=== PATIENT | female | born 1945 | race Caucasian/White ===

== ENCOUNTER 2018-12-31 07:01 | Inpatient (IN) | payer MEDICARE, BC ==
[2018-12-31] VITALS (31 sets, daily range): BP systolic 107–146; BP diastolic 55–83; PULSE 74–106; RESP 6–24; Ht 172.7 cm; Wt 95.6 kg
[~2018-12-31] VITALS: Ht 172.7 cm; Wt 95.6 kg
[~2018-12-31 07:01] MED LIST: ACETAMINOPHEN 500 MG TAB PO ONE; BACITRACIN 50000 UNITS INJ ONE; CEFAZOLIN 2 GM/50 ML (PMX) 50 ML IVPB ONE; DEXAMETHASONE 4 MG/ML 1 ML INJ IV ONE; LACTATED RINGER'S 1,000 ML IV* SCH; TRANEXAMIC ACID 1GM/100ML(PMX) 100 ML INTRA-OP X1 IVPB ONE; TRANEXAMIC ACID 1GM/100ML(PMX) 100 ML PRE-OP X1 IVPB ONE
[2018-12-31] MEDS ORDERED: POLYMYXIN B 500000 UNIT INJ ONE (07:12)
--- NOTE | 2018-12-31 07:29 | HPN ---
Date/Time of Note Date/Time of Note DATE: 12/31/18 TIME: 07:29 Interval H&P Admission Note Pt. seen H&P reviewed: No system changes ANNETTE PARSONS Dec 31, 2018 07:29
[2018-12-31] MEDS ORDERED: VENL-42 PO (08:02)
[2018-12-31] MEDS ORDERED: LEVO50TA71 PO (08:02)
[2018-12-31] MEDS ORDERED: LANS30CA PO (08:02)
[2018-12-31] MEDS ORDERED: GABA100C14 PO (08:03)
[2018-12-31] MEDS ORDERED: TURM500C9 PO (08:03)
[2018-12-31] MEDS ORDERED: CYCL1DRO BOTH EYES (08:05)
[2018-12-31] MEDS ORDERED: MELO15TA30 PO (08:06)
[2018-12-31] MEDS ORDERED: PRED5DRO20 LEFT EYE (08:06)
--- NOTE | 2018-12-31 08:36 | PREAC ---
Date/Time of Note Date/Time of Note DATE: 12/31/18 TIME: 08:35 Anesthesia Eval and Record Evaluation Time Pre-Procedure Interview DATE: 12/31/18 TIME: 08:35 Age 73 Sex female NPO: 8 hrs Preoperative diagnosis L knee OA Planned procedure L knee TKR Past Medical History Past Medical History: Includes Cardio: HTN, Dyslipidemia Endo: Hypothyroid GI: GERD, Obesity Surgery & Anesthesia Issues No known issue Meds Anticoagulation: No Beta Sarahi within 24 hr: No Reason Beta Sarahi not given: Pt. not on B-Sarahi Reported Medications Meloxicam* (Mobic*) 15 Mg Tablet, 15 MG PO DAILY, #30 TAB 12/31/18 Prednisolone Acetate* (Pred Forte*) 5 Ml Susp, 1 DROP LEFT EYE QHS, EA 12/31/18 Cyclosporine (RESTASIS) 1 Each Droperette, 1 DROP BOTH EYES Q12, #1 BOX 12/31/18 Gabapentin* (Gabapentin*) 100 Mg Capsule, 200 MG PO QHS, #180 CAP 12/31/18 Lansoprazole* (Lansoprazole*) 30 Mg Capsule.dr, 30 MG PO DAILY, CAP 12/31/18 Levothyroxine Sodium* (Levoxyl*) 50 Mcg Tablet, 50 MCG PO BEFORE BREAKFAST, #30 TAB 12/31/18 Venlafaxine Hcl* (Venlafaxine Hcl ER*) 37.5 Mg Cap.er.24h, 37.5 MG PO DAILY, CAP 12/31/18 Discontinued Reported Medications Turmeric Root Extract (Turmeric) 500 Mg Capsule, 1000 MG PO DAILY, CAP 12/31/18 Current Medications Lactated Ringer's 1,000 ml @ 125 mls/hr Q8H IV* ; Start 12/31/18 at 07:00; Stop 12/31/18 at 14:59 Meds reviewed: Yes Allergies Coded Allergies: No Known Allergy (Unverified , 12/31/18) Allergies Reviewed: Yes Labs/Studies Labs Reviewed: Reviewed by anesthesiologist test: Negative Studies: ECG Pre-procedure Exam Last vitals Vital Signs Date Temp Pulse Resp B/P (MAP) Pulse Ox O2 O2 Flow FiO2 Time Delivery Rate 12/31/18 98.1 106 16 146/71 95 07:15 (96) Airway: Adequate mouth opening, Adequate thyromental dist Mallampati: Mallampati II Teeth: Normal Lung: Normal Heart: Normal ASA Physical Status ASA physical status: 3 Emergency: None Planned Anesthetic General/MAC: ETT Neuraxial: Spinal Nerve block: Femoral (left) Planned Pain Management Sub-arachniod narcotics Pre-operative Attestations Prior to commencing anesthesia and surgery, the patient was re-evaluated, there was verification of: *The patient's identity *The results of appropriate recent lab work and preoperative vital signs *The above evaluation not changing prior to induction *Anesthetic plan, risk benefits, alternative and complications discussed with patient/family; questions answered; patient/family understands, accepts and wishes to proceed. RITA JOSEPH Dec 31, 2018 08:36
[2018-12-31] MEDS ORDERED: morphine SULFATE/PF (10 MG/10 ML) INJ ONE (08:52)
[2018-12-31] MEDS ORDERED: MIDAZOLAM 1 MG/ML 2 ML INJ ONE (08:53)
[2018-12-31] MEDS ORDERED: HYDROmorphONE 1 MG/5 ML IV SYRINGE IV PRN ×2 (09:00)
[2018-12-31] MEDS ORDERED: ALBUTEROL 0.083% (NEB) 2.5 MG/3 ML AMP HHN PRN (09:00)
[2018-12-31] MEDS ORDERED: METOCLOPRAMIDE 10 MG INJ IV PRN (09:00)
[2018-12-31] MEDS ORDERED: MEPERIDINE 25 MG INJ IV PRN (09:00)
[2018-12-31] MEDS ORDERED: DIPHENHYDRAMINE 50 MG INJ IV PRN (09:00)
[2018-12-31] MEDS ORDERED: ONDANSETRON 4 MG INJ IV PRN (09:00)
[2018-12-31] MEDS ORDERED: FENTAnyl 50 MCG/ML VIAL IV PRN ×2 (09:00)
[2018-12-31] MEDS ORDERED: FENTAnyl 50 MCG/ML VIAL ONE (09:10)
[2018-12-31] MEDS ORDERED: SUGAMMADEX SODIUM 200 MG/2 ML VIAL IV ONE (10:06)
[2018-12-31] MEDS ORDERED: ROCURONIUM 50 MG INJ ONE (10:06)
[2018-12-31] MEDS ORDERED: LIDOCAINE 100 MG SYRINGE ONE (10:06)
[2018-12-31] MEDS ORDERED: CEFAZOLIN 1 GM INJ ONE (10:06)
[2018-12-31] MEDS ORDERED: SUCCINYLCHOLINE CHLORIDE 100 MG/5 ML SYG IV ONE (10:06)
[2018-12-31] MEDS ORDERED: PROPOFOL 20 ML ONE (10:06)
[2018-12-31] MEDS ORDERED: ROPIVACAINE 0.5 % 30 ML VIAL ONE (10:06)
--- NOTE | 2018-12-31 10:36 | SIPON ---
Date/Time of Note Date/Time of Note DATE: 12/31/18 TIME: 10:35 Operative Report Preoperative Diagnosis Left knee osteoarthritis Postoperative Diagnosis Same Operation/Procedure Performed Left total knee replacement Surgeon see signature line speech pathology assistant GILMAR Catalan Anesthesia: spinal Estimated blood loss: 150 - 200 ml's Transfusion Required none Specimen Bone Grafts/Implants Attune knee, size 6 femur, size 5 tibia 6 mm polyethylene and 35 patella Complications none ANNETTE PARSONS Dec 31, 2018 10:36
--- NOTE | 2018-12-31 10:39 | OPR ---
Date/Time of Note Date/Time of Note DATE: 12/31/18 TIME: 10:36 Operative Report Procedure Date: Dec 31, 2018 Preoperative Diagnosis Left knee osteoarthritis Postoperative Diagnosis Same Operation/Procedure Performed Left total knee replacement Surgeon see signature line Irrigation Worker GILMAR Catalan Anesthesia Type: spinal Estimated Blood Loss: 150 - 200 ml's Transfusion none Specimen Bone Grafts/Implants Angus attune knee, 6 narrow femur, 5 tibia, 6 mL polyethylene and 35 patella Tubes/Drains None Complications none Pt Condition Post Procedure: stable Disposition: PACU Indications Patient is a 73-year-old female with advanced osteoarthritis of her left knee Procedure Description Patient was placed supine on the operating table. The left knee was prepped and draped in the usual manner. Preoperative antibiotics were administered. An anterior incision was made. A mid vastus approach was made on the patella displaced laterally without everting it. Hemostasis was achieved with electrocautery and aqua mantis. Using intramedullary alignment, the distal femoral cut was made in 5 degrees of valgus. The femur was measured to be a size 6 from the [employer] knee system. The 6 cutting block was placed. Anterior posterior chamfer cuts were made. A notch was cut in the distal femur to accommodate the posterior stabilized femoral component. The PCL was sacrificed, remnants of the menisci were removed. Hemostasis was confirmed. The tibia was cut using external alignment of the patella cut using a freehand technique. Trials were inserted including a 6 femur, 5 tibia, 35 patella and 6 mm of polyethylene. This resulted in a stable knee from 0 to 120 degrees with good balance and tracking. X-rays confirm proper alignment of the implants. Once satisfactory alignment was confirmed, final components were cemented in place including a 6 narrow femur, 5 tibia, 35 patella. Excess cement was removed. 6 mm of polyethylene were placed and the knee injected with pain cocktail. The kn ee was closed in layers using #1 strata fix for deep fascia, 2-0 Vicryl for subcutaneous tissue and 3-0 Monocryl for the skin. Patient was transferred to the recovery room in stable condition ANNETTE PARSONS Dec 31, 2018 10:39
[2018-12-31] MEDS ORDERED: KETOROLAC 15 MG INJ IV PRN (11:00)
[2018-12-31] MEDS ORDERED: NALOXONE (0.4 MG/ML) INJ IV PRN (11:00)
[2018-12-31] MEDS ORDERED: oxyCODONE 5 MG TAB PO PRN (11:00)
[2018-12-31] MEDS ORDERED: NACL 0.9% 3 ML SYG IV SCH (11:00)
[2018-12-31] MEDS ORDERED: MAGNESIUM HYDROXIDE 30ML CUP PO PRN (11:00)
[2018-12-31] MEDS: LACTATED RINGER'S 1,000 ML IV SCH ×2 (11:57→17:14)
--- NOTE | 2018-12-31 12:14 | PAC ---
Date/Time of Note Date/Time of Note DATE: 12/31/18 TIME: 12:14 Post-Anesthesia Notes Post-Anesthesia Note Last documented vital signs Vital Signs Date Temp Pulse Resp B/P (MAP) Pulse Ox O2 O2 Flow FiO2 Time Delivery Rate 12/31/18 98.1 106 16 146/71 95 07:15 (96) Activity: WNL Respiratory function: WNL Cardiovascular function: WNL Mental status: Baseline Pain reasonably controlled: Yes Hydration appropriate: Yes Nausea/Vomiting absent: Yes RITA JOSEPH Dec 31, 2018 12:14
[2018-12-31] MEDS ORDERED: GABAPENTIN 100 MG CAP PO SCH (13:00)
[2018-12-31] MEDS: CEFAZOLIN 2 GM/50 ML (PMX) 50 ML IVPB SCH (18:26)
[2018-12-31] MEDS: DIPHENHYDRAMINE 25 MG CAP PO PRN (19:47)
--- NOTE | 2018-12-31 19:54 | HP ---
DATE OF ADMISSION: 12/31/2018 CHIEF COMPLAINT: Left knee pain. HISTORY OF PRESENT ILLNESS: The patient is a 73-year-old female with history of severe degenerative arthritis of the left knee which was confirmed by MRI back in 11/2018. The patient also had medial m eniscal failure. The patient was referred to Dr. Annette Parsons and was brought into hospital today. The patient underwent left total knee replacement. The patient postoperatively denies any chest pain or short of breath. No history of headache, dizziness, syncope. 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 The patient did not have any abd ominal pain. No reported nausea or vomiting, any previous focal weakness. No reported hypertension, diabetes or congestive heart failure. The patient does have history of hypothyroidism and depressio n. REVIEW OF SYSTEMS: A total of 12 systems were reviewed and other than poor vision in the right eye a nd postoperative left knee pain, rest of review of systems was unremarkable. The patient's depressio n is well under control. The patient denies any suicidal ideation. No history of any acute skin alexa h or acute joint swelling recently. PAST MEDICAL HISTORY: As stated above. In addition, the patient also has history of acid reflux dis ease, migraine headache, history of mixed dyslipidemia and prediabetes. PAST SURGICAL HISTORY: Status post hemorrhoidectomy, partial thyroidectomy and hysterectomy and also right eye surgery by Dr. Vargas, retinal specialist. SOCIAL HISTORY: No smoking. Occasionally drinks alcohol. FAMILY HISTORY: Father at age 91. Mother at 89 from natural causes. MEDICATIONS PRIOR TO ADMISSION: 1. Venlafaxine. 2. Levothyroxine. 3. Prevacid. 4. Prednisone ophthalmic solution. 5. Restasis. 6. Mobic. 7. Topamax. 8. Gabapentin. 9. . ALLERGIES: NO KNOWN DRUG ALLERGIES. PHYSICAL EXAMINATION: GENERAL: Revealed the patient to be awake, alert, fairly oriented. VITAL SIGNS: Temperature 98.2, pulse 80, respirations 24, blood pressure 120/62, O2 sat is 99% on 2 liters' nasal cannula. HEENT: No eye discharge or redness. Conjunctivae and lids are normal. Nose and ears are normal. O ropharynx is grossly negative. NECK: Supple. No mass, no thyromegaly, no carotid bruit. CHEST: Fairly clear. No use of accessory muscles. CARDIOVASCULAR: S1, S2 normal. No murmur. ABDOMEN: Soft, nondistended, nontender. Bowel sounds are present. EXTREMITIES: No ankle edema. Pedal pulses are palpable. NEUROLOGIC: The patient is awake, alert, fairly oriented with no gross focal deficit, although exam was limited due to recent left knee replacement. LABORATORY DATA: Sodium 140, potassium 4.4, BUN 16, creatinine 0.9, glucose 95. Albumin 4.6. Coagu lation profile revealed INR of 1, PT 10.4, PTT 29. WBC 9.4, hemoglobin 14.6, platelets 315. DIAGNOSTIC DATA: EKG revealed normal sinus rhythm with no acute ST changes. Chest x-ray revealed no acute cardiopulmonary disease. IMPRESSION: 1. Left knee osteoarthritis status post left total knee replacement. Continue IV fluid and we will give aspirin for deep venous thrombosis prophylaxis. Continue with Celebrex, gabapentin and oxycodon e for pain control. 2. Hypothyroidism. Continue Synthroid. 3. Gastroesophageal reflux disease. Continue proton pump inhibitor. 4. Depression, stable with current dose of Effexor XR. We will continue that. We will do followup CBC and BMP tomorrow. Physical therapy has been ordered. We will continue to fo llow her from a medical standpoint. Dictated By: CARLOS JAY MD AB/NTS Conf#: [id number] DID#: [id number] CC: ANNETTE PARSONS MD;*End*
[2018-12-31] MEDS: GABAPENTIN 100 MG CAP PO SCH (21:22)
[2018-12-31] MEDS: oxyCODONE 5 MG TAB PO PRN (21:22)
[2018-12-31] MEDS: CYCLOSPORINE 0.05% OPH DROPERETTE BOTH EYES SCH (21:23)
[2018-12-31] MEDS: PREDNISOLONE ACET 1% 5 ML OPH LEFT EYE SCH (22:06)
[2019-01-01 00:30] VITALS: BP 118/55; PULSE 87; RESP 18
[2019-01-01] MEDS: oxyCODONE 5 MG TAB PO PRN ×5 (01:48→22:09)
[2019-01-01] MEDS: DIPHENHYDRAMINE 25 MG CAP PO PRN ×2 (01:52→08:53)
[2019-01-01] MEDS: CEFAZOLIN 2 GM/50 ML (PMX) 50 ML IVPB SCH ×2 (01:53→08:19)
[2019-01-01] MEDS: LEVOTHYROXINE 50 MCG TAB PO SCH (06:25)
[2019-01-01 08:05] VITALS: BP 122/69; PULSE 98; RESP 18
[2019-01-01] MEDS: LANSOPRAZOLE 30 MG CAP PO SCH (08:18)
[2019-01-01] MEDS: CELECOXIB 100 MG CAP PO SCH ×2 (08:18→21:18)
[2019-01-01] MEDS: ASPIRIN (EC) 81 MG TAB PO SCH ×2 (08:18→21:18)
[2019-01-01] MEDS: DOCUSATE SODIUM 100 MG CAP PO SCH ×2 (08:18→21:18)
[2019-01-01] MEDS: VENLAFAXINE (XR) 37.5 MG CAP PO SCH (08:18)
[2019-01-01] MEDS: CYCLOSPORINE 0.05% OPH DROPERETTE BOTH EYES SCH ×2 (08:19→21:18)
--- NOTE | 2019-01-01 09:59 | PN ---
Date/Time of Note Date/Time of Note DATE: 01/01/19 TIME: 09:57 Assessment/Plan Lines/Catheters IV Catheter Type (from Nrsg): Peripheral IV Patrick in Place (from Nrsg): No Assessment/Plan Assessment/Plan Patient is progressing well after left knee replacement. She does have increased pain today and would like to stay 1 more day in the hospital doing physical therapy and achieving better pain control. This is reasonable since her potassium is also high and will need observing. She will be discharged tomorrow with instructions to follow-up in 2 weeks Subjective 24 Hr Interval Summary Patient reports increased left knee pain today. She is pleased with her progress. She has been able to ambulate with a walker. Pain is controlled with oral pain medication Constitutional: ambulates Feeding: advancing diet Pain Control: moderate Exam/Review of Systems Vital Signs Vitals Vital Signs Date Temp Pulse Resp B/P (MAP) Pulse Ox O2 O2 Flow FiO2 Time Delivery Rate 01/01/19 98.2 98 18 122/69 99 Nasal 2.0 08:05 (86) Cannula Intake and Output 12/31/18 12/31/18 01/01/19 1414:59 22:59 06:59 IntakeIntake Total 1400 ml 50 ml 1730 ml OutputOutput Total 50 ml BalanceBalance 1350 ml 50 ml 1730 ml Exam Free Text/Dictation Examination shows a pleasant female. She is somewhat emotional. Left knee dressing is intact. There is no evidence of infection or DVT. There is no neurovascular deficit Results Result Diagram: 01/01/19 0451 01/01/19 0451 ANNETTE PARSONS Jan 01, 2019 09:59
--- NOTE | 2019-01-01 10:01 | PDOCDIS ---
Discharge Instructions DIAGNOSIS Discharge Diagnosis LEFT TKA CONDITION [id number] Patient Condition: [id number] Good HOME CARE INSTRUCTIONS: [id number] Diet Instructions: [id number] Regular ACTIVITY: [id number] Activity Restrictions: [id number] Slowly Increase Activity Avoid heavy lifting Do not Drive Keep Limb Elevated [id number] Bathing Restrictions: [id number] Shower FOLLOW UP/APPOINTMENTS Follow-up Plan 2 weeks with ANNETTE Sethi Jan 01, 2019 10:01
--- NOTE | 2019-01-01 10:05 | DS ---
Date/Time of Note Date/Time of Note DATE: 01/01/19 TIME: 10:04 Discharge Summary Admission/Discharge Info Admit Date/Time Dec 31, 2018 at 07:01 Discharge Date/Time Patient will be discharged on January 02 Discharge Diagnosis LEFT TKA Patient Condition: Good Hospital Course The patient underwent left total knee replacement on December 31, 2018. The patient was started on DVT prophylaxis and early mobilization. Pain was controlled with oral pain medication. Patient progressed well and was able to ambulate with a walker. She is discharged home on January 02 with instructions to continue physical therapy and home health and follow-up in the office in 2 weeks Home Meds Reported Medications Meloxicam* (Mobic*) 15 Mg Tablet, 15 MG PO DAILY, #30 TAB 12/31/18 Prednisolone Acetate* (Pred Forte*) 5 Ml Susp, 1 DROP LEFT EYE QHS, EA 12/31/18 Cyclosporine (RESTASIS) 1 Each Droperette, 1 DROP BOTH EYES Q12, #1 BOX 12/31/18 Gabapentin* (Gabapentin*) 100 Mg Capsule, 200 MG PO QHS, #180 CAP 12/31/18 Lansoprazole* (Lansoprazole*) 30 Mg Capsule.dr, 30 MG PO DAILY, CAP 12/31/18 Levothyroxine Sodium* (Levoxyl*) 50 Mcg Tablet, 50 MCG PO BEFORE BREAKFAST, #30 TAB 12/31/18 Venlafaxine Hcl* (Venlafaxine Hcl ER*) 37.5 Mg Cap.er.24h, 37.5 MG PO DAILY, CAP 12/31/18 Discontinued Reported Medications Turmeric Root Extract (Turmeric) 500 Mg Capsule, 1000 MG PO DAILY, CAP 12/31/18 Follow-up Plan [address] Titus Primary Care Provider Care Physician No Primary Time spent on discharge: < 30 minutes Pending Labs Laboratory Tests Test 01/01/19 04:51 01/01/19 06:47 White Blood Count 9.0 10^3/ul (4.8-10.8) Red Blood Count 3.66 10^6/ul (4.20-5.40) Hemoglobin 11.2 g/dl (12.0-16.0) Hematocrit 35.4 % (37.0-47.0) Mean Corpuscular Volume 96.7 fl (82.0-101.0) Mean Corpuscular Hemoglobin 30.6 pg (29.0-33.0) Mean Corpuscular 31.6 g/dl (32.0-37.0) Hemoglobin Concent Red Cell Distribution Width 13.3 % (11.5-14.5) Platelet Count 227 10^3/UL (140-415) Mean Platelet Volume 10.2 fl (7.4-10.4) Immature Granulocytes % 0.400 % (0.001-0.429) Neutrophils % 67.6 % (39.0-77.0) Lymphocytes % 17.0 % (15.0-51.0) Monocytes % 9.2 % (0.0-11.0) Eosinophils % 5.0 % (0.0-7.0) Basophils % 0.8 % (0.0-2.0) Nucleated Red Blood Cells % 0.0 /100WBC (0.0-0.0) Immature Granulocytes # 0.040 10^3/ul (0.0-0.031) Neutrophils # 6.1 10^3/ul (1.6-7.5) Lymphocytes # 1.5 10^3/ul (0.8-2.9) Monocytes # 0.8 10^3/ul (0.3-0.9) Eosinophils # 0.5 10^3/ul (0.0-0.5) Basophils # 0.1 10^3/ul (0.0-0.1) Nucleated Red Blood Cells # 0.0 10^3/ul (0.0-0.0) Sodium Level 142 mmol/L (135-144) Potassium Level 5.2 mmol/L (3.5-5.1) Chloride Level 108 mmol/L (97-110) Carbon Dioxide Level 29 mmol/L (21-31) Anion Gap 5 (5-13) Blood Urea Nitrogen 13 mg/dl (7-20) Creatinine 0.82 mg/dl (0.44-1.00) Est Glomerular Filtrat mL/min (>60) Rate mL/min Glucose Level 118 mg/dl (70-220) Calcium Level 8.6 mg/dl (8.4-10.2) Lab Scanned Report [facility] [id number] [facility] Jan 01, 2019 10:05
[2019-01-01] MEDS ORDERED: ONDANSETRON 4 MG INJ IV PRN (11:00)
[2019-01-01] MEDS: LACTATED RINGER'S 1,000 ML IV SCH (11:39)
--- NOTE | 2019-01-01 13:20 | PN ---
Date/Time of Note Date/Time of Note DATE: 01/01/19 TIME: 13:19 Assessment/Plan VTE Prophylaxis Risk score (from Nsg)>0 risk: 10 SCD applied (from Nsg): Yes Lines/Catheters IV Catheter Type (from Nrsg): Peripheral IV Urinary Cath still in place: No Assessment/Plan Assessment/Plan - Hyperkalemia- kayexalte 15 gm po x1 1. Left knee osteoarthritis status post left total knee replacement. Continue IV fluid and we will give aspirin for deep venous thrombosis prophylaxis. Continue with Celebrex, gabapentin and oxycodone for pain control. 2. Hypothyroidism. Continue Synthroid. 3. Gastroesophageal reflux disease. Continue proton pump inhibitor. 4. Depression, stable with current dose of Effexor XR. We will continue that. We will do followup CBC and BMP tomorrow. Physical therapy has been ordered. We will continue to follow her from a medical standpoint. Result Diagram: 01/01/19 0451 01/01/19 0451 Results 24hrs Laboratory Tests Test 01/01/19 04:51 01/01/19 06:47 White Blood Count 9.0 Red Blood Count 3.66 L Hemoglobin 11.2 L Hematocrit 35.4 L Mean Corpuscular Volume 96.7 Mean Corpuscular Hemoglobin 30.6 Mean Corpuscular Hemoglobin Concent 31.6 L Red Cell Distribution Width 13.3 Platelet Count 227 Mean Platelet Volume 10.2 Immature Granulocytes % 0.400 Neutrophils % 67.6 Lymphocytes % 17.0 Monocytes % 9.2 Eosinophils % 5.0 Basophils % 0.8 Nucleated Red Blood Cells % 0.0 Immature Granulocytes # 0.040 H Neutrophils # 6.1 Lymphocytes # 1.5 Monocytes # 0.8 Eosinophils # 0.5 Basophils # 0.1 Nucleated Red Blood Cells # 0.0 Sodium Level 142 Potassium Level 5.2 H Chloride Level 108 Carbon Dioxide Level 29 Anion Gap 5 Blood Urea Nitrogen 13 Creatinine 0.82 Est Glomerular Filtrat Rate mL/min Glucose Level 118 Calcium Level 8.6 Lab Scanned Report REFER[facility] Exam/Review of Systems Exam Vitals Vital Signs Date Temp Pulse Resp B/P (MAP) Pulse Ox O2 O2 Flow FiO2 Time Delivery Rate 01/01/19 98.2 98 18 122/69 99 Nasal 2.0 08:05 (86) Cannula Intake and Output 12/31/18 12/31/18 01/01/19 1515:00 23:00 07:00 IntakeIntake Total 1400 ml 50 ml 1730 ml OutputOutput Total 50 ml BalanceBalance 1350 ml 50 ml 1730 ml Results Results 24hrs Laboratory Tests Test 01/01/19 04:51 01/01/19 06:47 White Blood Count 9.0 Red Blood Count 3.66 L Hemoglobin 11.2 L Hematocrit 35.4 L Mean Corpuscular Volume 96.7 Mean Corpuscular Hemoglobin 30.6 Mean Corpuscular Hemoglobin Concent 31.6 L Red Cell Distribution Width 13.3 Platelet Count 227 Mean Platelet Volume 10.2 Immature Granulocytes % 0.400 Neutrophils % 67.6 Lymphocytes % 17.0 Monocytes % 9.2 Eosinophils % 5.0 Basophils % 0.8 Nucleated Red Blood Cells % 0.0 Immature Granulocytes # 0.040 H Neutrophils # 6.1 Lymphocytes # 1.5 Monocytes # 0.8 Eosinophils # 0.5 Basophils # 0.1 Nucleated Red Blood Cells # 0.0 Sodium Level 142 Potassium Level 5.2 H Chloride Level 108 Carbon Dioxide Level 29 Anion Gap 5 Blood Urea Nitrogen 13 Creatinine 0.82 Est Glomerular Filtrat Rate mL/min Glucose Level 118 Calcium Level 8.6 Lab Scanned Report [facility] Medications Medication Current Medications Lactated Ringer's 1,000 ml @ 80 mls/hr [id number] IV Last administered on 12/31/18at 17:14; Admin Dose 80 MLS/HR; Start 12/31/18 at 10:39 IV Flush (NS 3 ml) 3 ml PER PROTOCOL IV ; Start 12/31/18 at 11:00 Oxycodone HCl (Roxicodone) 10 mg Q4H PRN PO .PAIN Last administered on 01/01/19at 08:18; Admin Dose 10 MG; Start 12/31/18 at 11:00 Oxycodone HCl (Roxicodone) 5 mg Q4H PRN PO .PAIN; Start 12/31/18 at 11:00 Ketorolac Tromethamine (Toradol) 15 mg Q6H PRN IV .PAIN; Start 12/31/18 at 11:00 Ondansetron HCl (Zofran Inj) 4 mg Q4H PRN IV NAUSEA/VOMITING; Start 01/01/19 at 11:00 Celecoxib (Celebrex) 100 mg BID PO Last administered on 01/01/19 08:18; Admin Dose 100 MG; Start 01/01/19 at 09:00 Pantoprazole (Protonix Tab) 40 mg DAILY@06 PO ; Start 01/02/19 at 06:00 Docusate Sodium (Colace) 200 mg BID PO Last administered on 01/01/19 08:18; Admin Dose 200 MG; Start 01/01/19 at 09:00; Stop 01/04/19 at 08:59 Magnesium Hydroxide (Milk Of Mag) 30 ml HS PRN PO .CONSTIPATION; Start 12/31/18 at 11:00 Naloxone HCl (Narcan) 0.2 mg Q2M PRN IV .RESP RATE; Start 12/31/18 at 11:00 Aspirin (Halfprin) 81 mg BID PO Last administered on 01/01/19 08:18; Admin Dose 81 MG; Start 01/01/19 at 09:00 Cyclosporine (Restasis) 1 drop Q12 BOTH EYES Last administered on 01/01/19 08:19; Admin Dose 1 DROP; Start 12/31/18 at 21:00 Gabapentin (Neurontin) 200 mg QHS PO Last administered on 12/31/18 21:22; Admin Dose 200 MG; Start 12/31/18 at 21:00 Lansoprazole (Prevacid) 30 mg DAILY PO Last administered on 01/01/19 08:18; Admin Dose 30 MG; Start 01/01/19 at 09:00 Levothyroxine Sodium (Synthroid) 50 mcg BEFORE BREAKFAST PO Last administered on 01/01/19 06:25; Admin Dose 50 MCG; Start 01/01/19 at 07:00 Prednisolone Acetate (Pred-Forte 1%) 1 drop QHS LEFT EYE Last administered on 12/31/18 22:06; Admin Dose 1 DROP; Start 12/31/18 at 21:00 Venlafaxine HCl (Effexor Xr) 37.5 mg DAILY PO Last administered on 01/01/19 08:18; Admin Dose 37.5 MG; Start 01/01/19 at 09:00 Diphenhydramine HCl (Benadryl) 25 mg Q6H PRN PO ITCHING Last administered on 01/01/19 08:53; Admin Dose 25 MG; Start 12/31/18 at 19:30 MIO GHOSH Jan 01, 2019 13:20
[2019-01-01] MEDS ORDERED: NA POLYST SULFON 15 GM/60 ML BTL PO ONE (13:30)
[2019-01-01 19:36] VITALS: BP 127/61; PULSE 97; RESP 18
[2019-01-01] MEDS: GABAPENTIN 100 MG CAP PO SCH (21:17)
[2019-01-01] MEDS: PREDNISOLONE ACET 1% 5 ML OPH LEFT EYE SCH (21:18)
[2019-01-02] MEDS: LACTATED RINGER'S 1,000 ML IV SCH ×2 (00:09→12:39)
[2019-01-02] MEDS: oxyCODONE 5 MG TAB PO PRN ×2 (02:35→22:40)
[2019-01-02 02:53] VITALS: BP 129/63; PULSE 96; RESP 18
[2019-01-02] MEDS: LEVOTHYROXINE 50 MCG TAB PO SCH (06:10)
[2019-01-02] MEDS: PANTOPRAZOLE (EC) 40 MG TAB PO SCH (06:10)
[2019-01-02 07:18] VITALS: BP 135/75; PULSE 100; RESP 20
[2019-01-02] MEDS: ASPIRIN (EC) 81 MG TAB PO SCH ×2 (09:43→21:31)
[2019-01-02] MEDS: CELECOXIB 100 MG CAP PO SCH ×2 (09:43→21:31)
[2019-01-02] MEDS: CYCLOSPORINE 0.05% OPH DROPERETTE BOTH EYES SCH ×3 (09:43→22:39)
[2019-01-02] MEDS: LANSOPRAZOLE 30 MG CAP PO SCH (09:43)
[2019-01-02] MEDS: VENLAFAXINE (XR) 37.5 MG CAP PO SCH (09:43)
[2019-01-02] MEDS: DOCUSATE SODIUM 100 MG CAP PO SCH ×2 (09:43→21:31)
[2019-01-02] MEDS: ALBUTEROL/IPRATROPIUM (NEB) 3 ML AMP HHN SCH ×3 (10:55→19:12)
[2019-01-02] MEDS: CEFTRIAXONE 1 GM/50 ML (PMX) 50 ML IVPB SCH (11:58)
[2019-01-02] MEDS: METHYLPREDNISOLONE 40 MG INJ IV SCH ×2 (11:58→21:31)
[2019-01-02 13:52] VITALS: BP 123/58; PULSE 102; RESP 22
--- NOTE | 2019-01-02 19:00 | PN ---
DATE: 01/02/2019 SUBJECTIVE AND INTERVAL HISTORY: The patient this morning is having a productive cough with greenish sputum and also wheezing. The patient also is short of breath on exertion. She denies any chest pa in. No reported fever or chills. No reported nausea, vomiting or abdominal pain. Postoperative antelmo n, left knee is well controlled. PHYSICAL EXAMINATION: GENERAL: The patient is awake, alert and fairly oriented. VITAL SIGNS: Today, temperature 98.8, pulse 100, respirations 20, blood pressure 135/75 and O2 satur ation 94% on 2 liters cannula. HEENT: No eye discharge or redness. Conjunctivae normal. Oropharynx clear. NECK: No mass, no JVD. CHEST: Bilateral wheezing. No use of accessory muscles. CARDIOVASCULAR: Regular rhythm. S1, S2 normal, no murmur. ABDOMEN: Soft, nondistended, nontender. Bowel sounds present. EXTREMITIES: No ankle edema. Pedal pulses are palpable. SKIN: Without acute rash or ulcer. NEUROLOGIC: The patient is awake, alert, fairly oriented. LABORATORY DATA: Done this morning, WBC 12.5, up from 9, hemoglobin 11.3 and platelet 241. Sodium 1 39, potassium 4.1, BUN 9, creatinine 0.7, glucose 121 and calcium 8.6. IMPRESSION: 1. Shortness of breath and wheezing. The patient does have history of what sounds like a cough vari ant asthma and had been given an inhaler in the past by ____, her PMD. The patient did respond t o the treatment in the past. Today, she presents with a productive cough and wheezing with mild elev ation of white count. The patient appears to have asthmatic bronchitis. We will start her on IV lu roids, IV Rocephin and breathing treatment. We will obtain sputum culture and chest x-ray. 2. Left knee replacement. Continue physical therapy and pain control. Continue aspirin for DVT pro phylaxis. 3. Hypothyroidism. Continue Synthroid. 4. Gastroesophageal reflux disease. Continue PPI. 5. Depression, stable with current dose of Effexor. Dictated By: CARLOS JAY MD AB/NTS Conf#: [id number] DID#: [id number] CC: ANNETTE PARSONS MD;*EndCC*
[2019-01-02 20:07] VITALS: BP 132/68; PULSE 109; RESP 22
[2019-01-02] MEDS: GABAPENTIN 100 MG CAP PO SCH (21:31)
[2019-01-02] MEDS: PREDNISOLONE ACET 1% 5 ML OPH LEFT EYE SCH (21:31)
[2019-01-03] MEDS: LACTATED RINGER'S 1,000 ML IV SCH ×2 (01:09→13:39)
[2019-01-03 02:06] VITALS: BP 126/58; PULSE 101; RESP 22
[2019-01-03] MEDS: ALBUTEROL/IPRATROPIUM (NEB) 3 ML AMP HHN SCH ×4 (02:26→21:40)
[2019-01-03] MEDS: LEVOTHYROXINE 50 MCG TAB PO SCH (06:05)
[2019-01-03] MEDS: PANTOPRAZOLE (EC) 40 MG TAB PO SCH (06:05)
[2019-01-03 07:31] VITALS: BP 138/65; PULSE 95; RESP 15
[2019-01-03] MEDS: LANSOPRAZOLE 30 MG CAP PO SCH (08:10)
[2019-01-03] MEDS: CELECOXIB 100 MG CAP PO SCH ×2 (08:10→20:21)
[2019-01-03] MEDS: CYCLOSPORINE 0.05% OPH DROPERETTE BOTH EYES SCH ×2 (08:10→20:23)
[2019-01-03] MEDS: ASPIRIN (EC) 81 MG TAB PO SCH ×2 (08:10→20:22)
[2019-01-03] MEDS: METHYLPREDNISOLONE 40 MG INJ IV SCH ×2 (08:10→20:22)
[2019-01-03] MEDS: DOCUSATE SODIUM 100 MG CAP PO SCH ×2 (08:10→20:22)
[2019-01-03] MEDS: VENLAFAXINE (XR) 37.5 MG CAP PO SCH (08:10)
[2019-01-03] MEDS: CEFTRIAXONE 1 GM/50 ML (PMX) 50 ML IVPB SCH (11:04)
--- NOTE | 2019-01-03 12:48 | PN ---
DATE: 01/03/2019 SUBJECTIVE: Follow up on asthmatic bronchitis, recent left knee replacement, hypothyroidism, GERD an d depression. The patient after starting breathing treatment and antibiotic and IV steroids. He is feeling better. Does have wheezing and shortness of breath, but much better than yesterday. Denies any chest pain, no reported fever or chills. No reported nausea, vomiting. Postoperative pain is we ll controlled. Awake, alert. PHYSICAL EXAMINATION: VITAL SIGNS: Temperature 98.6, pulse 104, respirations 18, blood pressure 138/65, O2 saturation 93-1 00% on room air. HEENT: No eye discharge or redness. Oropharynx normal. NECK: Supple, no mass or thyromegaly. CHEST: Bilateral rhonchi and diminished breath sounds at the left base. CARDIOVASCULAR: S1, S2 normal, no murmur. ABDOMEN: Soft, nontender. No mass. EXTREMITIES: No ankle edema. Pedal pulse palpable. SKIN: Without acute rash or ulcer. NEUROLOGIC: The patient is awake, alert, fairly oriented. LABORATORY DATA: Done this morning, WBC 14.2, hemoglobin 10.8, neutrophils 90%. Chemistry: Sodium 143, potassium 4.4, BUN 11, creatinine 0.6, glucose 156, calcium 8.8. IMAGING: Chest x-ray revealed mild atelectasis at left costophrenic angle. IMPRESSION: 1. Asthmatic bronchitis. Continue IV steroids, breathing treatment and IV antibiotics. Sputum cult ure is still pending. 2. Left total knee replacement secondary to osteoarthritis. Continue physical therapy and pain cont rol. 3. Depression, stable with Effexor. 4. Hypothyroidism. Continue Synthroid. DISPOSITION: The patient will be discharged home with home health once her respiratory symptoms impr eros. Dictated By: CARLOS JAY MD AB/NTS Conf#: [id number] DID#: [id number] CC: ANNETTE PARSONS MD;*EndCC*
[2019-01-03 15:16] VITALS: BP 118/56; PULSE 108; RESP 16
[2019-01-03 19:36] VITALS: BP 145/66; PULSE 100; RESP 18
[2019-01-03] MEDS: PREDNISOLONE ACET 1% 5 ML OPH LEFT EYE SCH (20:22)
[2019-01-03] MEDS: GABAPENTIN 100 MG CAP PO SCH (20:22)
[2019-01-03] MEDS: oxyCODONE 5 MG TAB PO PRN (23:58)
[2019-01-04 02:09] VITALS: BP 149/83; PULSE 96; RESP 18
[2019-01-04] MEDS: LACTATED RINGER'S 1,000 ML IV SCH ×2 (02:09→14:39)
[2019-01-04] MEDS: ALBUTEROL/IPRATROPIUM (NEB) 3 ML AMP HHN SCH ×4 (02:21→19:51)
[2019-01-04] MEDS: LEVOTHYROXINE 50 MCG TAB PO SCH (06:08)
[2019-01-04] MEDS: PANTOPRAZOLE (EC) 40 MG TAB PO SCH (06:08)
[2019-01-04 07:19] VITALS: BP 160/79; PULSE 94; RESP 18
[2019-01-04] MEDS: LANSOPRAZOLE 30 MG CAP PO SCH (08:20)
[2019-01-04] MEDS: ASPIRIN (EC) 81 MG TAB PO SCH ×2 (08:20→21:00)
[2019-01-04] MEDS: CELECOXIB 100 MG CAP PO SCH ×2 (08:20→21:00)
[2019-01-04] MEDS: CYCLOSPORINE 0.05% OPH DROPERETTE BOTH EYES SCH ×2 (08:20→21:01)
[2019-01-04] MEDS: METHYLPREDNISOLONE 40 MG INJ IV SCH ×2 (08:21→21:01)
[2019-01-04] MEDS: VENLAFAXINE (XR) 37.5 MG CAP PO SCH (08:27)
[2019-01-04] MEDS: CEFTRIAXONE 1 GM/50 ML (PMX) 50 ML IVPB SCH (10:06)
[2019-01-04 10:30] VITALS: BP 143/80
[2019-01-04] MEDS: oxyCODONE 5 MG TAB PO PRN ×4 (12:39→21:00)
[2019-01-04 14:06] VITALS: BP 131/68; RESP 19
[2019-01-04 19:54] VITALS: BP 143/65; PULSE 74; RESP 20
--- NOTE | 2019-01-04 20:07 | PN ---
DATE: 01/04/2019 SUBJECTIVE: Follow up on acute asthmatic bronchitis, recent left knee replacement, hypothyroidism an d depression. The patient is breathing comfortably at rest, although does get chest congestion and w heezing upon exertion. No reported fever or chills. PHYSICAL EXAMINATION: GENERAL: Revealed the patient to be awake, alert. VITAL SIGNS: Temperature 97.8, pulse 95, respiration 20, blood pressure 131/68, O2 saturation 97% on room air. HEENT: No eye discharge or redness. Conjunctivae and lids are normal. Oropharynx is clear. NECK: No mass. CHEST: Bilateral rhonchi. CARDIOVASCULAR: S1, S2 normal. ABDOMEN: Soft, nondistended, nondistended. EXTREMITIES: No edema. NEUROLOGIC: The patient is awake, alert, fairly oriented. ASSESSMENT AND PLAN: 1. WBC 14.5 probably due to steroids. Continue breathing treatment and systemic steroid. 2. Hypothyroidism. Continue Synthroid. Chemistry done this morning revealed sodium 145, potassium 4.4, BUN 16, creatinine 0.7, glucose 140. Continue PT for recent left total knee replacement. From orthopedics standpoint, the patient is stable to discharge. We will continue to follow. If she is d oing well tomorrow, we will discharge her home with home health on p.o. antibiotic and tapering stero ids. Dictated By: CARLOS JAY MD AB/SUNG Conf#: [id number] DID#: [id number] CC: ANNETTE PARSONS MD;*EndCC*
[2019-01-04] MEDS: GABAPENTIN 100 MG CAP PO SCH (21:00)
[2019-01-04] MEDS: PREDNISOLONE ACET 1% 5 ML OPH LEFT EYE SCH (21:01)
[2019-01-05] MEDS: ALBUTEROL/IPRATROPIUM (NEB) 3 ML AMP HHN SCH ×3 (01:27→13:39)
[2019-01-05 01:45] VITALS: BP 139/67; PULSE 100; RESP 18
[2019-01-05] MEDS: LACTATED RINGER'S 1,000 ML IV SCH (03:09)
[2019-01-05] MEDS: oxyCODONE 5 MG TAB PO PRN ×3 (05:00→14:03)
[2019-01-05] MEDS: PANTOPRAZOLE (EC) 40 MG TAB PO SCH (05:01)
[2019-01-05] MEDS: LEVOTHYROXINE 50 MCG TAB PO SCH (05:01)
[2019-01-05 07:11] VITALS: BP 141/58; PULSE 81; RESP 19
[2019-01-05] MEDS: CELECOXIB 100 MG CAP PO SCH (08:33)
[2019-01-05] MEDS: METHYLPREDNISOLONE 40 MG INJ IV SCH (08:33)
[2019-01-05] MEDS: VENLAFAXINE (XR) 37.5 MG CAP PO SCH (08:33)
[2019-01-05] MEDS: ASPIRIN (EC) 81 MG TAB PO SCH (08:33)
[2019-01-05] MEDS: CYCLOSPORINE 0.05% OPH DROPERETTE BOTH EYES SCH (08:34)
[2019-01-05] MEDS: LANSOPRAZOLE 30 MG CAP PO SCH (08:35)
[2019-01-05] MEDS: CEFTRIAXONE 1 GM/50 ML (PMX) 50 ML IVPB SCH (09:07)
[2019-01-05 14:20] VITALS: BP 131/62; PULSE 78; RESP 18
--- NOTE | 2019-01-05 19:38 | PN ---
DATE: 02/04/2019 SUBJECTIVE: Follow up on asthmatic bronchitis, left knee replacement, and hypothyroidism. The patie nt is breathing comfortably today. Has no wheezing. Cough has improved. The patient did receive 1 dose of Solu-Medrol this morning. The patient overall is feeling better and stable for discharge. N o fever or chills. No chest pain. PHYSICAL EXAMINATION: GENERAL: The patient is awake, alert, and fairly oriented. VITAL SIGNS: Temperature 97.2, pulse 70, respirations 18, blood pressure 131/62, O2 saturation 98% o n room air. HEENT: No eye discharge. Conjunctivae and lids are normal. Oropharynx clear. NECK: Supple. No thyromegaly. CHEST: Fairly clear. No use of accessory muscles. CARDIOVASCULAR: S1, S2 normal. Regular rhythm. ABDOMEN: Soft and nontender. Bowel sounds present. EXTREMITIES: No ankle edema. Dressing on the left knee intact. Pedal pulses palpable. NEUROLOGIC: The patient is awake, alert, and oriented with no gross focal deficit. LABORATORY DATA: Labs done this morning, WBC 14.4, hemoglobin 10.6, platelets 342. Sodium 140, pota ssium 4.4, BUN 17, creatinine 0.7, glucose 154, calcium 9.2. IMPRESSION: 1. Asthmatic bronchitis. The patient has improved. 2. Left total knee replacement. 3. Gastroesophageal reflux disease. 4. Hypothyroidism. DISPOSITION: 1. The patient will be discharged home today with home health. The patient will continue gabapentin 200 mg at bedtime, Prevacid 30 mg a day, Levoxyl 50 mcg a day, Mobic 50 mg once a day, prednisone ey edrop 1 drop left eye at bedtime, and venlafaxine ER 37.5 mg once a day. We will also give Ventolin inhaler 2 puffs q.6h. p.r.n. Followup with Dr. Titus after 1 week and follow up with PMD, Dr. Teena beckham in 1 to 2 weeks. CONDITION ON DISCHARGE: Stable. Plan of care discussed with the patient's as well as staff nurse. Dictated By: CARLOS JAY MD AB/NTS Conf#: [id number] DID#: [id number] CC: ANNETTE TITUS MD;*EndCC*
== END 2019-01-05 17:15 | disposition home health service (06) | DRG 470 ==
LOC: REC 07:01 → MS1 16:45
PROVIDERS: ADMIT Orthopaedic Surgery; ATTEND Orthopaedic Surgery
PROC: 0SRD0J9 Replacement of Left Knee Joint with Synthetic Substitute, Cemented, Open Approach (ICD-10-PCS; principal; 2018-12-31 08:30)
DX: M17.12 Unilateral primary osteoarthritis, left knee (principal); E87.5 Hyperkalemia; J45.909 Unspecified asthma, uncomplicated; E03.9 Hypothyroidism, unspecified; K21.9 Gastro-esophageal reflux disease without esophagitis; F32.9 Major depressive disorder, single episode, unspecified; R06.02 Shortness of breath
CPT/HCPCS: 71045; 73560; 80048; 85025; 86850; 86900; 86901; 87081; 88304; 88311; 94640; 94664; 97110; 97116; 97161; 97167; 97530; 97535; C1776; J0171; J0690; J0696; J0735; J1100; J1170; J1885; J2001; J2250; J2274; J2405; J2795; J2920; J3010; J7120